=== PATIENT | male | born 1945 | race Caucasian/White ===

== ENCOUNTER → 2021-06-26 08:30 | Outpatient (CLI) | payer MEDICARE, SELFPAY ==
--- NOTE | ~2021-06-26 | MR_ITS ---
EXAMINATION: MR brain/brain stem wo con DATE: 06/26/2021 09:11 INDICATION: Cognitive decline. Altered mental status. TECHNIQUE: Magnetic resonance imaging (MRI) of the brain and brainstem was performed without intraven ous contrast. Sequences included sagittal and axial T1-weighted FSE, axial diffusion-weighted FS EPI, axial T2*-weighted GRE, axial T2-weighted FLAIR Propeller, and axial T2-weighted Propeller. Apparent diffusion coefficient (ADC) maps were created. COMPARISON: None. FINDINGS: There is a 3.9 x 2.8 cm arachnoid cyst posterior to left cerebellum. There are scattered ar eas of nonspecific increased T2-weighted signal intensity in the cerebral white matter, which is with in normal limits for the patient's age. There is no intracranial hemorrhage, acute infarction, or abn ormal intracranial mass lesion. The ventricles are normal in size. There is an old blowout fracture o f medial wall of left orbit. There is mild mucosal thickening in the ethmoid sinuses. The mastoid air cells are normal. IMPRESSION: 1. No etiology for the patient's symptoms. Reviewed, dictated and finalized at location A.
== END ==
PROVIDERS: PCP Family Medicine; Visit Provider Psychiatry & Neurology Neurology
DX: R41.89 Other symptoms and signs involving cognitive functions and awareness (principal)
CPT/HCPCS: 70551

== ENCOUNTER 2023-06-01 12:25 | Observation (INO) | payer MEDICARE, SELFPAY ==
--- NOTE | ~2023-06-01 | CT_ITS ---
EXAMINATION: CT brain wo con DATE: 06/01/2023 12:38 INDICATION: Right-sided facial droop. TECHNIQUE: Computed tomography (CT) of the head was performed without intravenous contrast. Sagittal and coronal reconstructions were performed. The mA was adjusted according to patient size. Iterative reconstruction technique was employed. The dose-length product was 605.33 mGy-cm. COMPARISON: Brain MR dated 06/26/2021 FINDINGS: No acute intracranial hemorrhage or acute infarction. Stable appearance of a 3.7 x 2.8 cm arachnoid c yst posterior to the cephalad left cerebellum. No other abnormal extra axial fluid collections. There is mild scattered white matter hypoattenuation consistent with chronic small vessel ischemic disease . Symmetric prominence of the sulci consistent with mild age-appropriate diffuse cerebral volume loss . Ventricles are normal and symmetric. No mass/mass effect. Changes of bilateral intraocular lens rep lacement. Chronic blowout fracture along the medial wall of the left orbit. The paranasal sinuses and mastoid air cells are normal. IMPRESSION: 1. No acute intracranial process. 2. Age-related changes including mild diffuse volume loss and mild scattered white matter hypoattenua tion consistent with chronic small vessel ischemic disease. Reviewed, dictated and finalized at location A. IMPRESSION: 1. No acute intracranial process. 2. Age-related changes including mild diffuse volume loss and mild scattered wh ite matter hypoattenuation consistent with chronic small vessel ischemic diseas e.
--- NOTE | ~2023-06-01 | US_ITS ---
EXAMINATION: US carotid duplex BI DATE: 06/02/2023 09:50 INDICATION: Neurologic symptoms. Carotid atherosclerosis. TECHNIQUE: Grayscale, color Doppler, and pulsed Doppler images of the cervical carotid arteries were obtained. The degree of vessel stenosis is placed in one of the following categories: normal, <50%, 5 0-69%, >=70% but less than near-occlusion, near-occlusion, or total occlusion. Note that percent sten osis relative to normal distal artery lumen diameter is indirectly measured from velocity measurement s as described by Sj, et al. Radiology 2003; 229:340-346. COMPARISON: None. FINDINGS: RIGHT: The right common carotid artery (CCA) peak systolic velocity (PSV) is 66 cm/s. The right internal car otid artery (ICA) PSV is 54 cm/s. The right ICA end-diastolic velocity (EDV) is 13 cm/s. The right IC A/CCA PSV ratio is 0.8. Grayscale and color Doppler images yield an estimate of <50% diameter reducti on from plaque in the ICA. The external carotid artery (ECA) PSV is 94 cm/s. There is antegrade flow in the right vertebral artery. LEFT: The left CCA PSV is 85 cm/s. The left ICA PSV is 55 cm/s. The left ICA EDV is 13 cm/s. The left ICA/C CA PSV ratio is 0.7. Grayscale and color Doppler images demonstrate no evident stenosis or plaque in the ICA. The ECA PSV is 73 cm/s. There is antegrade flow in the left vertebral artery. IMPRESSION: 1. <50% stenosis from minimal plaque in the right internal carotid artery. 2. No evident plaque or stenosis in the left internal carotid artery. Reviewed, dictated and finalized at location A.
--- NOTE | ~2023-06-01 | CT_ITS ---
CT Scan of the Chest without Contrast: Clinical Indication: Pulmonary nodules Technique: Contiguous sections were acquired throughout the chest without intravenous contrast. Dose reduction technique was used on this scan by utilizing automated exposure control and iterative recon struction technique. The dose-length product (DLP) was 425.41 mGy-cm. Findings: There is no evidence of any significant mediastinal, hilar or axillary lymphadenopathy. Coronary phil ry calcifications are present. There is no evidence of pleural or pericardial effusion. There are numerous tiny centrilobular nodules in the upper lobes. Several calcified granulomas are al so noted in the lungs. Left kidney not visualized at the left renal fossa. Impression: Numerous tiny centrilobular nodules, predominantly in the upper lobes. This is a nonspecific finding, but likely considerations would include bronchiolitis/small airways infection. Other considerations could include chronic interstitial disease, hypersensitivity pneumonitis. Clinical correlation is req uired. Left kidney not visualized at the left renal fossa. Correlate for prior resection versus low-lying or ectopic kidney. Reviewed, dictated and finalized at [facility]. Impression: Numerous tiny centrilobular nodules, predominantly in the upper lobes. This is a nonspecific finding, but likely considerations would include bronchiolitis/sm all airways infection. Other considerations could include chronic interstitial disease, hypersensitivity pneumonitis. Clinical correlation is required. Left kidney not visualized at the left renal fossa. Correlate for prior resecti on versus low-lying or ectopic kidney.
--- NOTE | ~2023-06-01 | CT_ITS ---
EXAMINATION: CTA BRAIN/CAROTID DATE: 06/01/2023 13:45 INDICATION: Intermittent right facial droop TECHNIQUE: Computed tomographic angiography (CTA) of the head and neck was performed with 100 mL Omni paque-350 intravenous contrast. Multiplanar reconstructions and maximum intensity projection 3D-recon structions of the carotid arteries and of the intracranial arteries were created by the technologist on a separate workstation. Automated exposure control and iterative reconstruction technique were emp loyed.The dose-length product was 1272.19 mGy-cm. COMPARISON: None. FINDINGS: Carotid arteries: Small amount of scattered atherosclerotic plaque along the normal caliber thoracic aorta with no diss ection. There is small amount of atherosclerotic plaque with 0% stenosis of the right carotid bulb re lative to normal distal artery lumen diameter (NASCET criteria). There is no evident atherosclerotic plaque with 0% stenosis of the left carotid bulb relative to normal distal artery lumen diameter. Mil d bilateral hilar lymphadenopathy. Calcified right middle lobe nodule and calcified right hilar lymph nodes consistent with old granulomatous disease. There are numerous <5 mm, the majority 2 mm or smal ler scattered throughout the visualized mid and upper lungs with upper lung predominance. These nodul es have a random distribution with multiple positioned along the fissures and pleura but many also ap pearing centrilobular. Mild cervical spondylosis with bridging osteophytes at multiple levels consist ent with diffuse idiopathic skeletal hyperostosis (DISH). Intracranial arteries Scattered atherosclerotic plaque along the bilateral carotid siphons without hemodynamically signific ant stenosis. Left vertebral artery is mildly dominant. Additional atherosclerotic plaque along the b ilateral intracranial vertebral arteries, right greater than left with no significant stenosis on the left but with up to 60% stenosis on the right. No hemodynamically significant stenosis in the basila r artery. There are no aneurysms identified. Both A1 and P1 segments are patent. There is also a pat ent anterior communicating artery. Cerebral arterial arborization appears symmetric. No abnormally en hancing brain lesions identified. Left posterior fossa arachnoid cyst. IMPRESSION: 1. Small amount of atherosclerotic plaque with 0% stenosis of the right carotid bulb relative to norm al distal artery lumen diameter (NASCET criteria). 2. No evident atherosclerotic plaque with 0% stenosis of the left carotid bulb relative to normal dis candi artery lumen diameter. 3. Atherosclerotic disease with 60% stenosis along the intracranial right vertebral artery. 4. Numerous small pulmonary nodules and micronodules scattered throughout the visualized portions of both lungs with random distribution and upper lung predominance. Likely associated bilateral hilar ly mphadenopathy. Differential would include metastatic disease, atypical miliary infection including TB or fungal infections, sarcoidosis, silicosis or less likely hypersensitivity pneumonitis bursitis or respiratory bronchiolitis interstitial lung disease given the apparent presence of pleural-based nod ules. Reviewed, dictated and finalized at location A. IMPRESSION: 1. Small amount of atherosclerotic plaque with 0% stenosis of the right carotid bulb relative to normal distal artery lumen diameter (NASCET criteria). 2. No evident atherosclerotic plaque with 0% stenosis of the left carotid bulb relative to normal distal artery lumen diameter. 3. Atherosclerotic disease with 60% stenosis along the intracranial right verte bral artery. 4. Numerous small pulmonary nodules and micronodules scattered throughout the v isualized portions of both lungs with random distribution and upper
--- NOTE | ~2023-06-01 | MR_ITS ---
MRI of the brain Clinical History: TIA Technique: Axial and sagittal T1-weighted images were acquired. These were followed by axial T2-weigh nancy, diffusion weighted, gradient, and FLAIR images. Following intravenous administration of 19 cc Mu ltiHance gadolinium, T1-weighted fat-sat imaging was performed in the axial and coronal planes. COMPARISON: 06/26/2021 Findings: No acute infarct or intracranial hemorrhage identified. Stable arachnoid cyst in the left p osterior fossa. Mild chronic white matter changes are present in the periventricular white matter, si milar to prior exam. Ventricles and subarachnoid spaces otherwise are mildly dilated. Orbits are unremarkable. Paranasal s inuses and mastoid air cells are clear. Major intracranial flow voids are intact. Sagittal midline structures are intact. No abnormal postcontrast enhancement identified. IMPRESSION: No acute abnormality seen. Stable left posterior fossa arachnoid cyst. Mild chronic white matter changes and mild to moderate generalized atrophy. Reviewed, dictated and finalized at location .
[2023-06-01 12:27] VITALS: BP 137/68; PULSE 89; RESP 16; TEMP 36.4; O2SAT 98
--- NOTE | 2023-06-01 12:34 | ECG_ITS ---
Measurements Intervals [place] Rate: 77 P: 42 CA: 180 QRS: -31 QRSD: 107 T: 33 QT: 390 QTc: 442 Interpretive Statements SINUS RHYTHM LEFT AXIS DEVIATION DELAYED PRECORDIAL R/S TRANSITION BORDERLINE ECG NO PREVIOUS ECG AVAILABLE FOR COMPARISON Electronically Signed On 06-01-2023 12:57:50 CDT by Robert Dillon D.O.
--- NOTE | 2023-06-01 12:35 | ED.NEUROSD ---
HPI - Neuro Symptoms/Deficit General Chief Complaint: Neuro Symptoms/Deficit Stated Complaint: FACIAL DROOP Time Seen by Provider: 06/01/23 12:34 History of Present Illness HPI Narrative: Patient is an 78-year-old male presenting as a stroke alert. Patient states that his thought that the right side of his mouth looked a little bit droopy so she thought he was having a heart attack and made him come in for evaluation. He denies any complaints at this time other than not being able to play golf. No numbness or weakness. No slurred speech. No vision changes. No complaints. Related Data Home Medications Medication Instructions Recorded Confirmed aspirin 81 mg tablet,delayed 81 mg PO DAILY 12/18/19 06/01/23 release (Aspir-Low) multivitamin (One Daily Essential 1 tablet PO DAILY 12/18/19 06/01/23 tablet) omega-3 fatty acids 1,000 mg 1,000 mg PO DAILY 12/18/19 06/01/23 capsule (Fish Oil Concentrate) cholecalciferol (vitamin D3) 50 50 mcg PO DAILY 12/02/21 06/01/23 mcg (2,000 unit) capsule insulin NPH-regular 70-30 U-100 20 unit subcut BID 06/06/22 06/01/23 insulin 100 unit/mL subcutaneous pen (Novolin 70-30 FlexPen U-100 Insulin) gemfibrozil 600 mg tablet 600 mg PO BID 06/01/23 06/01/23 Allergies Allergy/AdvReac Type Severity Reaction Status Date / Time No Known Allergies Allergy Verified 06/06/22 10:01 Review of Systems Review of Systems: All systems reviewed & are unremarkable except as noted in HPI and below PMFSH Past Medical History Medical History Anxiety Depression Dyslipidemia Essential (primary) hypertension History of colon polyps IDDM (insulin dependent diabetes mellitus) Positive serology for syphilis Pulmonary nodule Vitamin D deficiency Surgical History Surgical History History of hernia surgery bilateral inguinal hernia repair - 2014 Family History Family History Mother Diabetes mellitus CHF (congestive heart failure) Dementia Father Dementia Social History Social History Social History: The patient is retired from the [employer]. 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 He is and lives with his . He has 1 child. He is a former smoker. He denies any alcohol marijuana or illicit drugs. Code status full code Smoking status: Never smoker Tobacco type: cigarettes Smoking end date: 11/20/1965 Alcohol intake: former Drinks per week: 0 Alcohol use details: stopped in 1972 Substance use: never Substance use type: does not use Lack of Transportation: No Lack of Food: Never True Current Housing: I Have Housing Concerned About Future Housing: No Difficulty Paying Gas/Electric Bills: No Difficulty Paying for Meds: No Currently Unemployed: No Education: High School Diploma/GED Difficulty w/ Childcare or Family Care: No Living arrangements: with family Additional living arrangements comments: Occupation/Education: retired Gender identity (if verbalized by the patient): Male Sexual Orientation (if Verbalized by the Patient): Straight or Heterosexual Spiritual care concerns: No Exam Narrative: GENERAL: Well-appearing, well-nourished, and in no acute distress. HEAD: Normocephalic, atraumatic. EYES: PERRLA and EOMI. ENT: Nares clear, no rhinorrhea or epistaxis. Mucous membranes moist. NECK: Supple. CHEST: No respiratory distress. HEART: Regular rate and rhythm ABDOMEN: Soft, nontender, nondistended EXTREMITIES: Normal range of motion. No edema. SKIN: Warm, dry, no rash. NEURO: No focal deficits. Alert and oriented x3. 5 out of 5 strength in all extremities, I do not appreciate a facial droop, normal speech, no pronator drift
[2023-06-01 12:47] LABS: Glucose Point of Care 222 mg/dl (65-105)
[2023-06-01 12:51] LABS: Basophils Absolute Auto 0.1 K/mm3 (0.0-0.1); Basophils Percent Auto 0.9 % (0.2-1.2); Eosinophils Absolute Auto 0.1 K/mm3 (0-0.3); Eosinophils Percent Auto 1.1 % (0-4.4); Hematocrit 42.5 % (42.0-52.0); Hemoglobin 14.9 g/dL (14.0-18.0); Immature Granulocyte Absolute 0.01 K/mm3 (0.00-0.031); Immature Granulocyte Percent A 0.1 % (0-0.5); Lymphocytes Absolute Auto 1.22 K/mm3 (0.9-3.2); Lymphocytes Percent Auto 17.4 % (18.3-44.2); Mean Corpuscular HGB Conc 35.1 g/dl (32-36); Mean Corpuscular Hemoglobin 30.8 pg (26-34); Mean Corpuscular Volume 87.8 fl (80-100); Mean Platelet Volume 11.3 fl (7.4-10.4); Monocytes Absolute Auto 0.5 K/mm3 (0.1-0.6); Monocytes Percent Auto 7.7 % (2.6-8.5); Neutrophils Absolute Auto 5.1 K/mm3 (1.3-6.7); Neutrophils Percent Auto 72.8 % (45.5-73.1); Platelet Count Result 199 k/mm3 (150-375); Red Blood Count 4.84 M/mm3 (4.6-6.20); Red Cell Distribution Width 12.9 % (11.5-14.5)
[2023-06-01 13:01] LABS: Alanine Aminotransferase 21 U/L (6-50); Albumin Level 4.2 g/dL (3.5-5.1); Alkaline Phosphatase 69 U/L (38-126); Anion Gap 7 mmol/L (8-16); Aspartate Amino Transferase 30 U/L (17-59); Blood Urea Nitrogen 18 mg/dL (9-20); Calcium 9.3 mg/dL (8.4-10.2); Carbon Dioxide 28 mmol/L (22-30); Chloride 103 mmol/L (98-107); Estimated CRCL calculation 57 ml/min; Estimated Glomerular Filt Rate > 60; Glucose 198 mg/dL (65-110); INR 1.1; Potassium 3.5 mmol/L (3.4-5.0); Prothrombin Time 15.2 Seconds (11.1-14.7); Sodium 138 mmol/L (137-145)
[2023-06-01 13:02] LABS: Partial Thromboplastin Time 28.5 SECONDS (22.3-36.8)
[2023-06-01 13:13] LABS: Troponin I < 0.012 ng/mL (0.000-0.034)
[2023-06-01 14:00] VITALS: BP 149/73; PULSE 79; RESP 20; O2SAT 93
[2023-06-01 15:40] LABS: Appearance Urine Clear (Clear); Bacteria Urine None Seen /hpf; Bilirubin Urine Negative (Negative); Blood Urine Negative (Negative); Color Urine Yellow (Yellow); Glucose Urine UA Negative (Negative); Ketones Urine Negative (Negative); Leukocyte Esterase Ur Negative LEU/UL (Negative); Nitrate Urine Negative (Negative); Protein Urine Trace mg/dL (Negative); RBC Urine 0-2 /hpf (0-2); Squamous Epithelial Cell Urine None seen /hpf (Few); WBC Urine 0-5 /hpf
[2023-06-01 15:45] LABS: Add Urine Microscopic? YES; Specific Grav Ur 1.051 (1.001-1.035)
[2023-06-01 15:54] VITALS: BMI 28.0
[2023-06-01 15:57] VITALS: BP 161/68; PULSE 89; RESP 18; TEMP 36.7; O2SAT 96
[2023-06-01 16:21] VITALS: BMI 28.0
--- NOTE | 2023-06-01 16:28 | PM.IMHP ---
H&P: HPI History of Present Illness Date/Time: 06/01/23 16:28 Chief Complaint: Facial droop Narrative: This is a very active 78-year-old male patient who was brought into the emergency room presenting with a stroke alert. His stated that he had some right-sided facial drooping this morning. She thought that he was having a stroke and brought up to the hospital. The patient had no focal weakness or any visual changes. The patient had no difficulty ambulating. Head and neck CTA was read as a follows. Small amount of atherosclerotic plaque with 0% stenosis of the right carotid bulb relative to normal distal artery lumen diameter (NASCET criteria). 2. No evident atherosclerotic plaque with 0% stenosis of the left carotid bulb relative to normal distal artery lumen diameter. 3. Atherosclerotic disease with 60% stenosis along the intracranial right vertebral artery. 4. Numerous small pulmonary nodules and micronodules scattered throughout the visualized portions of both lungs with random distribution and upper lung predominance. Likely associated bilateral hilar lymphadenopathy. Differential would include metastatic disease, atypical miliary infection including TB or fungal infections, sarcoidosis, silicosis or less likely hypersensitivity pneumonitis bursitis or respiratory bronchiolitis interstitial lung disease given the apparent presence of pleural-based nodules. Head CT was read as a follows. No acute intracranial process. 2. Age-related changes including mild diffuse volume loss and mild scattered white matter hypoattenuation consistent with chronic small vessel ischemic disease. The patient is alert and active and very talkative. He is moving without difficulty. His glucose is 198 and then 415. The patient had insulin coverage. His troponin was negative. His urine was negative. The patient is being admitted to observation status on the date of service of 06/01/2023 Review of Systems Review of Systems: All systems reviewed & are unremarkable except as noted in HPI and below Constitutional: Constitutional: Reports as per HPI and Reports no additional constitutional complaints Eyes: Eyes: Reports as per HPI and Reports no additional eye complaints ENT: Reports system reviewed and no additional complaints, except as documented and Reports Normal hearing present Cardiovascular: Cardiovascular: Reports no additional cardiovascular complaints Respiratory: Respiratory: Reports no additional respiratory complaints and Reports no additional respiratory complaints Gastrointestinal: Gastrointestinal: Reports as per HPI and Reports no additional gastrointestinal complaints Musculoskeletal: Musculoskeletal: Reports no additional musculoskeletal complaints Integumentary/Breasts: Skin/Breast: Reports system reviewed and no additional complaints, except as docu and Reports as per HPI Neurologic: Reports system reviewed and no additional complaints, except as documented, Reports as per HPI and Reports Normal hearing present Psychiatric: Psychiatric: Reports no additional psychiatric complaints and Reports as per HPI Endocrine: Endocrine: Reports no additional endocrine complaints Hematologic/Lymphatic: Hematologic/Lymphatic: Reports no additional hematologic/lymphatic complaints Allergic/Immunologic: Allergic/Immunologic: Reports no additional allergic/immunologic complaints [facility] Past Medical History Medical History (Updated 06/02/23 @ 00:12 by Mell Moirllo NP) Anxiety Depression Dyslipidemia Essential (primary) hypertension History of colon polyps IDDM (insulin dependent diabetes mellitus) Positive serology for syphilis Pulmonary nodule Vitamin D deficiency Surgical History Surgical History History of hernia surgery bilateral inguinal hernia repair - 2014 Family History Family History Mother Diabetes mellitu
--- NOTE | 2023-06-01 16:32 | ADMGEN ---
This patient, Bassam Wiggins, was admitted to Medical Room 255-. Patient/family oriented to hospital policies and general routines including ID bracelet, bed and alarms, visiting hours, pain management, procedures, bathroom and other care routines, personal items, smoking policy, room service/diet, and visiting hours. Information on how to activate the Rapid Response Team has been discussed. Patient/Family are encouraged to report perceived risks to care and to ask questions if they do not understand what they are told or what they should do.
[2023-06-01 19:41] VITALS: BP 150/80; PULSE 74; RESP 18; TEMP 36.8; O2SAT 97
[2023-06-01 20:00] VITALS: PULSE 89
[2023-06-01 20:54] LABS: Glucose Point of Care 415 mg/dl (65-105)
[2023-06-01] MEDS: INSULIN ASPART (*BKC) 100 UNITS/ML 8 UNITS SUB-Q (21:34)
[2023-06-02] VITALS: PULSE 61
--- NOTE | 2023-06-02 | ECHO_ITS ---
Patient Info Name: Bassam Wiggins Age: 78 years : 1945 Gender: Male Ht: 72 in Wt: 207 lbs BSA: 2.20 m2 HR: 66 bpm BP: 148 / 60 mmHg Technical Quality: Fair Exam Date: 06/02/2023 10:56 AM Exam Location: [facility] Patient Status: Outpatient Admit Date: 06/01/2023 Staff Ordering Physician: Mell Morillo NP Tile Helper: Blessing Manzo RDCS Attending Provider: Mark Ahn MD Referring Physician: Yisel DAVID; Exam Type: CA echo doppler w bubble study Study Info Indications - NEUROLOGICAL SYMPTOMS Complete two-dimensional, color flow and Doppler transthoracic echocardiogram is performed with agitated saline. Contrast/Agitated Saline Contrast/Ag. Saline: Agitated Saline Amount: 40.00 ml Summary 1. Left ventricular chamber dimension is normal. 2. Left ventricular systolic function is normal, estimated at 60-65%. 3. The left ventricular diastolic function is grade I diastolic dysfunction. 4. E/e' 12 is mildly elevated. 5. Left atrial chamber dimension is moderately enlarged. 6. There is mild aortic valve sclerosis. 7. No pulmonary hypertension, estimated pulmonary arterial systolic pressure is 29 mmHg. Left Ventricle E/e' 12 is mildly elevated. Left ventricular chamber dimension is normal. Left ventricular systolic function is normal, estimated at 60-65%. The left ventricular diastolic function is grade I diastolic dysfunction. Right Ventricle Right ventricular chamber dimension is normal. Right ventricular systolic function is normal. Left Atria Left atrial chamber dimension is moderately enlarged. Right Atria Right atrial chamber dimension is normal. Atrial Septum Agitated saline injection with and without valsalva maneuver opacified right side cardiac chambers without shunt to left side cardiac chambers. Intact interatrial septum visualized by 2D and agitated saline imaging. Aortic Valve The aortic valve is trileaflet. There is mild aortic valve sclerosis. There is no aortic valve stenosis. There is no aortic valve regurgitation. Pulmonic Valve There is no pulmonic regurgitation. Mitral Valve There is no mitral valve stenosis. There is no mitral valve regurgitation. Tricuspid Valve There is no tricuspid valve regurgitation. No pulmonary hypertension, estimated pulmonary arterial systolic pressure is 29 mmHg. Pericardium/Pleural There is no pericardial effusion. Inferior Vena Cava Normal inferior vena cava with >50% collapse upon inspiration consistent with normal right atrial pressure, 5 mmHg. Aorta The aortic root size at the sinus of Valsalva is normal. Left Ventricular Outflow Tract Name Value Normal LVOT 2D LVOT Diameter 2.0 cm LVOT Doppler LVOT Peak Gradient 5 mmHg LVOT Mean Gradient 3 mmHg LVOT VTI 28 cm LVOT VTI/AV VTI Ratio 1.0 LVOT Stroke Volume 90 ml LVOT CO 5.5 l/min LVOT CI 2.5 l/min/m2 Pulmonic Valve
[2023-06-02 05:32] LABS: Basophils Percent Auto 0.7 % (0.2-1.2); Eosinophils Absolute Auto 0.2 K/mm3 (0-0.3); Eosinophils Percent Auto 4.2 % (0-4.4); Hematocrit 36.9 % (42.0-52.0); Hemoglobin 12.7 g/dL (14.0-18.0); Lymphocytes Absolute Auto 1.58 K/mm3 (0.9-3.2); Lymphocytes Percent Auto 39.2 % (18.3-44.2); Mean Corpuscular HGB Conc 34.4 g/dl (32-36); Mean Corpuscular Hemoglobin 30.2 pg (26-34); Mean Corpuscular Volume 87.6 fl (80-100); Mean Platelet Volume 11.1 fl (7.4-10.4); Monocytes Absolute Auto 0.4 K/mm3 (0.1-0.6); Monocytes Percent Auto 9.2 % (2.6-8.5); Neutrophils Absolute Auto 1.9 K/mm3 (1.3-6.7); Neutrophils Percent Auto 46.7 % (45.5-73.1); Platelet Count Result 153 k/mm3 (150-375); Red Blood Count 4.21 M/mm3 (4.6-6.20); Red Cell Distribution Width 12.6 % (11.5-14.5)
[2023-06-02 06:00] VITALS: BP 148/60; PULSE 60; RESP 18; TEMP 36.4; O2SAT 94
[2023-06-02 06:00] LABS: Alanine Aminotransferase 18 U/L (6-50); Albumin Level 3.9 g/dL (3.5-5.1); Alkaline Phosphatase 65 U/L (38-126); Anion Gap 5 mmol/L (8-16); Aspartate Amino Transferase 28 U/L (17-59); Bilirubin,Total 0.6 mg/dL (0.2-1.3); Blood Urea Nitrogen 19 mg/dL (9-20); Calcium 8.8 mg/dL (8.4-10.2); Carbon Dioxide 29 mmol/L (22-30); Chloride 105 mmol/L (98-107); Estimated CRCL calculation 70 ml/min; Estimated Glomerular Filt Rate > 60; Glucose 227 mg/dL (65-110); Magnesium 1.7 mg/dL (1.6-2.3); Potassium 3.6 mmol/L (3.4-5.0); Sodium 139 mmol/L (137-145)
[2023-06-02 06:16] LABS: Lactic Acid Reflex 0.9 mmol/L (0.7-2.0)
[2023-06-02 06:31] LABS: Hemoglobin A1C 8.4 % (<5.7)
[2023-06-02 08:00] VITALS: PULSE 49; PULSE 60; RESP 18
--- NOTE | 2023-06-02 08:56 | WPDNEURCNPN ---
Assessment and Plan Assessment and plan (1) Facial droop: Code(s): R29.810 - Facial weakness Status: Acute (2) IDDM (insulin dependent diabetes mellitus): Code(s): E11.9 - Type 2 diabetes mellitus without complications; Z79.4 - alf (current) use of insulin Status: Acute (3) Dyslipidemia: Code(s): E78.5 - Hyperlipidemia, unspecified Status: Acute (4) Essential (primary) hypertension: Code(s): I10 - Essential (primary) hypertension Status: Acute Plan Bassam Wiggins is a 78 year old male with a history of HTN, HLD, DM, anxiety, depression presenting due to transient episode of right facial droop, concerning for possible TIA. CTA brain showed R vertebral stenosis. MRI negative for acute stroke. - Surface echocardiogram with bubble study pending - Will need to optimize DM and HLD management, goal LDL <70 - Once work-up is completed, should be okay to dc Consult date: 06/02/23 Reason for consult: TIA HPI: Bassam Wiggins is a 78 year old male with a history of HTN, HLD, DM, anxiety, depression presenting due to concerns for TIA. On day of presentation, noted that patient had right facial droop. He did not have any other focal weakness or numbness or speech issues. She was concerned that he was having a heart attack so brought him to [place] ED. On arrival to [place] he no longer had any facial droop and his NIH was 0. EKG showed sinus rhythm. Blood pressure was in the 130s systolic. CT head showed no acute changes. CTA brain/carotid showed small amount of atheroslerotic plaque in the R carotid bulb, and atherosclerotic disease with 60% stenosis along the intracranial R vertebral artery. He already takes daily aspirin and is on gemfibrozil. His LDL from this admission is 116 and A1c is 8.4. MRI brain negative for acute stroke. Review of Systems Constitutional: Constitutional: Denies chills, Denies fever(s) and Denies weight loss Eyes: Eyes: Denies diplopia and Denies loss of vision ENT: Denies dizziness, Denies hearing loss and Denies tinnitus Cardiovascular: Cardiovascular: Denies chest pain, Denies syncope and Denies dyspnea Respiratory: Respiratory: Denies cough, Denies dyspnea and Denies wheezing Gastrointestinal: Gastrointestinal: Denies abdominal pain, Denies change in bowel habits and Denies vomiting Genitourinary: Genitourinary: Denies urinary incontinence Musculoskeletal: Musculoskeletal: Denies arthralgias and Denies joint swelling Integumentary/Breasts: Skin/Breast: Denies new lesions and Denies rash Neurologic: Reports as per HPI, Denies dizziness, Denies syncope and Denies loss of vision Psychiatric: Psychiatric: Denies anxiety and Denies depression Endocrine: Endocrine: Denies cold intolerance and Denies heat intolerance Hematologic/Lymphatic: Hematologic/Lymphatic: Denies easy bleeding and Denies easy bruising Allergic/Immunologic: Allergic/Immunologic: Denies no additional allergic/immunologic complaints and Denies wheezing PMFSH Past Medical History Medical History Anxiety Depression Dyslipidemia Essential (primary) hypertension History of colon polyps IDDM (insulin dependent diabetes mellitus) Positive serology for syphilis Pulmonary nodule Vitamin D deficiency Surgical History Surgical History History of hernia surgery bilateral inguinal hernia repair - 2014 Family History Family History Mother Diabetes mellitus CHF (congestive heart failure) Dementia Father Dementia Social History Social History Social History: The patient is retired from the [employer]. 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 He is and lives with his . He has 1 child. He is a fo
[2023-06-02] MEDS: SERTRALINE HCL 25 MG TABLET 75 MG PO (09:54)
[2023-06-02] MEDS: CHOLECALCIFEROL 1,000 UNITS TABLET 2000 UNITS PO (09:54)
[2023-06-02] MEDS: lisinopriL 20 MG TABLET 40 MG PO (09:54)
[2023-06-02] MEDS: amLODIPine BESYLATE 5 MG TABLET 10 MG PO (09:55)
[2023-06-02] MEDS: gemfibroziL 600 MG TABLET PO ×2 (09:55→17:48)
[2023-06-02] MEDS: MULTIVITAMINS THERAPEUTIC TAB (*BKC) 1 TABLET PO (09:55)
[2023-06-02] MEDS: OMEGA 3 POLYUNSAT FATTY ACIDS 1 GM CAP PO (09:55)
[2023-06-02] MEDS: ASPIRIN 81 MG ENTERIC TABLET PO (09:55)
[2023-06-02 10:09] LABS: Glucose Point of Care 205 mg/dl (65-105)
[2023-06-02] MEDS: INSULIN ASPART (*BKC) 100 UNITS/ML SUB-Q ×3 (10:14→17:46)
[2023-06-02 12:00] VITALS: PULSE 66
--- NOTE | 2023-06-02 12:02 | PM.DS ---
DS: Admitting Diagnosis Discharge Date June 02, 2023 Admitting Diagnosis TIA DS: Discharge Diagnosis Discharge Diagnosis (1) Facial droop: Code(s): R29.810 - Facial weakness Status: Acute Assessment and Plan: Symptoms have resolved. Continue with aspirin. Neurology has been consulted. Continue with TIA workup. MRI of the brain, echo with bubble study, and carotid Dopplers. The patient is back to his normal state of health and would like to be discharged tomorrow. The patient stated that he is preparing for golf tournament and he job a mile and half every day. The patient is moving all extremities without difficulty. (2) Pulmonary nodule: Code(s): R91.1 - Solitary pulmonary nodule Status: Acute Assessment and Plan: Diagnostic CT of the chest to rule out infectious process versus malignancy. (3) Anxiety: Code(s): F41.9 - Anxiety disorder, unspecified Status: Acute Assessment and Plan: Continue with patient's sertraline (4) Dyslipidemia: Code(s): E78.5 - Hyperlipidemia, unspecified Status: Acute Assessment and Plan: Continue with gemfibrozil and [place] 3 (5) IDDM (insulin dependent diabetes mellitus): Code(s): E11.9 - Type 2 diabetes mellitus without complications; Z79.4 - ocean transportation intermediary (current) use of insulin Status: Acute Assessment and Plan: I am holding his 70 30 at this time. Which is do Accu-Cheks AC and HS with sliding scale insulin. Check A1c. Holding metformin due to the dye. (6) Depression: Qualifiers: Depression Type: unspecified Qualified Code(s): F32.9 - Major depressive disorder, single episode, unspecified Code(s): F32.9 - Major depressive disorder, single episode, unspecified Status: Acute Assessment and Plan: Continue sertraline (7) Essential (primary) hypertension: Code(s): I10 - Essential (primary) hypertension Status: Acute Assessment and Plan: Continue lisinopril and Norvasc DS: Summary Hospital Course Hospital Course: Patient was admitted for TIA, workup was negative. He can be discharged. Time Spent with Patient Time attestation: Total time spent providing and/or coordinating discharge services: Exam Const: General: cooperative, healthy appearing, comfortable, no acute distress, well developed, awake, Physically active, average body habitus and well nourished Nutritional Appearance: average body habitus and well nourished Orientation/consciousness: oriented to person, oriented to place, oriented to time and patient oriented x3 Limitations: no limitations HENMT: Head: normal to inspection, No palpable skull fracture present, normocephalic and atraumatic Ears: hearing grossly normal bilaterally and external ears normal Face/Nose/Sinus: Normal external nose present and Normal nares present Eyes: General: appearance normal, both eyes and all related structures Alignment and Position: alignment normal Periorbital: periorbital findings normal Eyelids: eyelids normal Sclera: sclerae normal Pupils: Equal, round and reactive pupils present EOM: EOMs intact bilaterally Neck: Neck: normal visual inspection, full ROM, no lymphadenopathy, trachea midline and supple Chest: Chest palpation & inspection: normal inspection of the chest Resp: Effort & Inspection: normal respiratory effort Auscultation: clear to auscultation bilaterally Cardio: Palpation: normal PMI Rate: regular rate Rhythm: regular rhythm Heart sounds: S1 normal heart sound present and S2 normal heart sound present Peripheral pulses: Peripheral pulses 2+ throughout GI: Inspection: normal to inspection Auscultation: normal bowel sounds Rectal Exam: deferred Back/Spine/Pelvis: Cervical Spine: cervical ROM normal Skin: General skin exam: normal color Lesions: no lesions Rashes: no rashes Trauma: no lacerations or abrasions Wounds: no wounds Hair: normal Nails: normal Neuro:
[2023-06-02 12:18] LABS: Glucose Point of Care 318 mg/dl (65-105)
--- NOTE | 2023-06-02 13:21 | PCCCNOTE ---
On 06/02/23, the student, [Ellen Colin], provided care and completed [facility] documentation on this patient. I have reviewed the student's documentation and agree with the findings.
[2023-06-02 14:59] VITALS: BP 125/87; PULSE 59; RESP 18; TEMP 36.6; O2SAT 97
[2023-06-02 16:00] VITALS: PULSE 59
[2023-06-02 17:32] LABS: Glucose Point of Care 283 mg/dl (65-105)
== END 2023-06-02 18:00 | disposition home or self-care (01) ==
LOC: ANHED 13:33 → ANH2MED 15:35
PROVIDERS: Nurse Practitioner; Admitting Provider Chiropractor; Emergency Provider Emergency Medicine; PCP Family Medicine; Visit Provider Chiropractor
DX: R29.810 Facial weakness (principal); E11.9 Type 2 diabetes mellitus without complications; E78.5 Hyperlipidemia, unspecified; I11.9 Hypertensive heart disease without heart failure; F41.9 Anxiety disorder, unspecified; F32.A Depression, unspecified; I65.01 Occlusion and stenosis of right vertebral artery; A53.0 Latent syphilis, unspecified as early or late; G93.0 Cerebral cysts; R91.8 Other nonspecific abnormal finding of lung field; R90.82 White matter disease, unspecified; I35.8 Other nonrheumatic aortic valve disorders; E55.9 Vitamin D deficiency, unspecified; Z87.891 Personal history of nicotine dependence; Z79.82 Long term (current) use of aspirin; Z79.4 Long term (current) use of insulin; Z79.84 Long term (current) use of oral hypoglycemic drugs; Z79.899 Other long term (current) drug therapy
CPT/HCPCS: 36415; 70450; 70496; 70498; 70553; 71250; 80053; 81001; 82948; 83036; 83605; 83735; 84443; 84484; 85025; 85610; 85730; 93005; 93306; 93880; 96375; 99285; A9270; A9577; G0378; J1815; Q9967

== ENCOUNTER 2023-06-12 10:45 | Outpatient (CLI) | payer MEDICARE, SELFPAY ==
[2023-06-12 19:49] LABS: Basophils Absolute Auto 0.1 K/mm3 (0.0-0.1); Basophils Percent Auto 1.3 % (0.2-1.2); Eosinophils Absolute Auto 0.2 K/mm3 (0-0.3); Eosinophils Percent Auto 3.6 % (0-4.4); Hematocrit 42.6 % (42.0-52.0); Hemoglobin 14.6 g/dL (14.0-18.0); Immature Granulocyte Absolute 0.01 K/mm3 (0.00-0.031); Immature Granulocyte Percent A 0.2 % (0-0.5); Lymphocytes Absolute Auto 1.67 K/mm3 (0.9-3.2); Mean Corpuscular HGB Conc 34.3 g/dl (32-36); Mean Corpuscular Hemoglobin 30.9 pg (26-34); Mean Corpuscular Volume 90.3 fl (80-100); Mean Platelet Volume 12.3 fl (7.4-10.4); Monocytes Absolute Auto 0.5 K/mm3 (0.1-0.6); Monocytes Percent Auto 9.7 % (2.6-8.5); Neutrophils Absolute Auto 3.1 K/mm3 (1.3-6.7); Neutrophils Percent Auto 55.2 % (45.5-73.1); Platelet Count Result 191 k/mm3 (150-375); Red Blood Count 4.72 M/mm3 (4.6-6.20); Red Cell Distribution Width 13.1 % (11.5-14.5); White Blood Count 5.6 K/mm3 (4.5-10.0)
[2023-06-12 20:19] LABS: Cholesterol 161 mg/dL (0-200); HDL Direct 43 mg/dL; Triglycerides 71 mg/dL (<150)
[2023-06-12 20:29] LABS: LDL Cholesterol Direct 89 mg/dL
[2023-06-12 20:48] LABS: Prostate Specific Antigen 2.7 ng/mL (< OR = 4.0)
== END 2023-06-12 10:46 | disposition home or self-care (01) ==
LOC: ANHGOSHLAB 10:46
PROVIDERS: PCP Family Medicine; Visit Provider Family Medicine
DX: E53.8 Deficiency of other specified B group vitamins (principal); E55.9 Vitamin D deficiency, unspecified; E78.5 Hyperlipidemia, unspecified; Z12.5 Encounter for screening for malignant neoplasm of prostate; Z00.00 Encounter for general adult medical examination without abnormal findings
CPT/HCPCS: 36415; 80061; 82306; 82607; 84153; 85025; G0103

== ENCOUNTER 2023-12-18 09:51 | Outpatient (CLI) | payer MEDICARE, SELFPAY ==
[2023-12-18 19:12] LABS: Alanine Aminotransferase 16 U/L (6-50); Albumin Level 4.2 g/dL (3.5-5.1); Alkaline Phosphatase 69 U/L (38-126); Anion Gap 8 mmol/L (8-16); Aspartate Amino Transferase 34 U/L (17-59); Blood Urea Nitrogen 19 mg/dL (9-20); Calcium 9.6 mg/dL (8.4-10.2); Carbon Dioxide 31 mmol/L (22-30); Chloride 104 mmol/L (98-107); Estimated Glomerular Filt Rate > 60; Glucose 152 mg/dL (65-110); Sodium 143 mmol/L (137-145)
== END 2023-12-18 09:52 | disposition home or self-care (01) ==
PROVIDERS: PCP Family Medicine; Visit Provider Family Medicine
DX: E78.5 Hyperlipidemia, unspecified (principal); E11.9 Type 2 diabetes mellitus without complications; I10 Essential (primary) hypertension; Z79.4 Long term (current) use of insulin
CPT/HCPCS: 36415; 80053

== ENCOUNTER 2024-02-28 09:54 | Outpatient (CLI) | payer MEDICARE, SELFPAY ==
--- NOTE | ~2024-02-28 | XR_ITS ---
EXAMINATION: XR hip RT min 2V DATE: 02/28/2024 10:12 INDICATION: Right hip pain. TECHNIQUE: 2 views of right hip were obtained. COMPARISON: None. FINDINGS: Bone alignment is normal. No fracture. There is mild right hip osteoarthritis. IMPRESSION: 1. Mild right hip osteoarthritis. Reviewed, dictated and finalized at location A.
== END 2024-02-28 09:55 ==
PROVIDERS: PCP Family Medicine; Visit Provider Nurse Practitioner Family
DX: M16.11 Unilateral primary osteoarthritis, right hip (principal); W19.XXXA Unspecified fall, initial encounter
CPT/HCPCS: 73502

== ENCOUNTER 2024-07-23 11:04 | Outpatient (CLI) | payer MEDICARE, SELFPAY ==
[2024-07-23 14:56] LABS: Alanine Aminotransferase 21 U/L (6-50); Albumin Level 4.4 g/dL (3.5-5.1); Alkaline Phosphatase 64 U/L (38-126); Anion Gap 11 mmol/L (4-12); Aspartate Amino Transferase 44 U/L (17-59); Bilirubin,Total 0.7 mg/dL (0.2-1.3); Blood Urea Nitrogen 15 mg/dL (9-20); Calcium 9.4 mg/dL (8.4-10.2); Carbon Dioxide 31 mmol/L (22-30); Chloride 98 mmol/L (98-107); Cholesterol 131 mg/dL (0-200); Estimated Glomerular Filt Rate > 60; Glucose 222 mg/dL (65-110); HDL Direct 41 mg/dL; Potassium 4.1 mmol/L (3.4-5.0); Sodium 140 mmol/L (137-145); Triglycerides 110 mg/dL (<150)
[2024-07-23 15:07] LABS: LDL Cholesterol Direct 66 mg/dL
[2024-07-23 15:18] LABS: Hemoglobin A1C 8.5 % (<5.7)
[2024-07-23 15:20] LABS: Microalbumin Urine Random 116.9 mg/L (0-16.7)
[2024-07-23 15:26] LABS: Prostate Specific Antigen 2.9 ng/mL (< OR = 4.0)
[2024-07-23 15:27] LABS: Vitamin D 25 Hydroxy 81.1 ng/mL
[2024-07-23 15:57] LABS: Basophils Absolute Auto 0.1 K/mm3 (0.0-0.1); Basophils Percent Auto 1.2 % (0.2-1.2); Eosinophils Absolute Auto 0.2 K/mm3 (0-0.3); Eosinophils Percent Auto 2.9 % (0-4.4); Hematocrit 43.6 % (42.0-52.0); Hemoglobin 14.7 g/dL (14.0-18.0); Immature Granulocyte Absolute 0.02 K/mm3 (0.00-0.031); Immature Granulocyte Percent A 0.3 % (0-0.5); Lymphocytes Absolute Auto 1.69 K/mm3 (0.9-3.2); Lymphocytes Percent Auto 24.6 % (18.3-44.2); Mean Corpuscular HGB Conc 33.7 g/dl (32-36); Mean Corpuscular Hemoglobin 30.1 pg (26-34); Mean Corpuscular Volume 89.2 fl (80-100); Mean Platelet Volume 12.2 fl (7.4-10.4); Monocytes Absolute Auto 0.7 K/mm3 (0.1-0.6); Monocytes Percent Auto 9.6 % (2.6-8.5); Neutrophils Absolute Auto 4.2 K/mm3 (1.3-6.7); Neutrophils Percent Auto 61.4 % (45.5-73.1); Platelet Count Result 171 k/mm3 (150-375); Red Blood Count 4.89 M/mm3 (4.6-6.20); Red Cell Distribution Width 13.1 % (11.5-14.5); White Blood Count 6.9 K/mm3 (4.5-10.0)
[2024-07-23 15:59] LABS: Creatinine Urine 469.3 mg/dL; MALB Creatinine Ratio 24.9 mg/g (0-30)
== END 2024-07-23 11:05 | disposition home or self-care (01) ==
PROVIDERS: Nurse Practitioner; PCP Family Medicine; Visit Provider Nurse Practitioner Family
DX: E11.9 Type 2 diabetes mellitus without complications (principal); Z79.4 Long term (current) use of insulin; E53.8 Deficiency of other specified B group vitamins; E55.9 Vitamin D deficiency, unspecified; E78.5 Hyperlipidemia, unspecified; F32.9 Major depressive disorder, single episode, unspecified; F41.9 Anxiety disorder, unspecified; I10 Essential (primary) hypertension; R41.89 Other symptoms and signs involving cognitive functions and awareness; Z00.00 Encounter for general adult medical examination without abnormal findings; Z12.5 Encounter for screening for malignant neoplasm of prostate; Z13.29 Encounter for screening for other suspected endocrine disorder
CPT/HCPCS: 36415; 80053; 80061; 82043; 82306; 82607; 83036; 84153; 84443; 85025; G0103

== ENCOUNTER 2024-10-05 18:32 | Emergency (ER) | payer MEDICARE, SELFPAY ==
--- NOTE | ~2024-10-05 | XR_ITS ---
EXAM: XR soft tissue neck DATE: 10/05/2024 21:48 HISTORY: Possible FB . COMPARISON: None available. FINDINGS: Bilateral hearing aids. Artifactual hook or clasp over the right shoulder. Multilevel dege nerative disc disease in the cervical spine including prominent bridging anterior osteophytes. The kylie ng apices are clear. Patent airways. Normal epiglottis. No prevertebral soft tissue swelling. IMPRESSION: Unremarkable x-ray neck soft tissue findings. No radiopaque foreign body detected. Reviewed, dictated and finalized at location K. [employer]
--- NOTE | 2024-10-05 20:11 | PC.NURSE ---
pt to triage desk asking about wait time. this rn along with yarn rewinder explained to patient waiting and triage process to patient. pt states, I will if I keep waiting I have an orange peel in the back of my throat and I can feel it. I could just pull it out myself . pt in no visible distress at this time and able to speak in clear and concise sentences. this rn explained to patient once bed became available he would be taken back. pt states, I guess I could just leave and come back . yarn rewindershaina stated if patient felt he was concerned for mortality he needed to stay and be seen by a medical provider. rn explained the risks of leaving before seeing provider. pt states, I just need a room to be seen . Again x2 rn educated patient about wait time and process. pt then returned to seat in the waiting. pt still in no visible distress at this time and able to speak in clear and concise sentences.
[2024-10-05 20:25] VITALS: BP 151/73; PULSE 69; RESP 17; TEMP 36.3; O2SAT 96
[2024-10-05 20:29] VITALS: O2SAT 96
--- NOTE | 2024-10-05 21:43 | PC.NURSE ---
Pt in xray at this time.
--- NOTE | 2024-10-05 22:09 | ED.SKABFB ---
HPI - Skin/Abscess/Foreign Bdy General Chief complaint: Skin/Abscess/Foreign Body Stated complaint: fb gi Time Seen by Provider: 10/05/24 21:15 Source: patient Mode of arrival: ambulatory Limitations: no limitations History of Present Illness HPI narrative: This is a 79-year-old male who presents to the ED for chief complaint of possible esophageal foreign body. He believes it is of possible tangerine rind. He was eating tinge drain earlier and felt like part of the right got stuck. He estimates it no bigger than a nickel in size. He states that he went to another hospital around 2:30 a.m. this morning when it happened. He reports he was given some lidocaine to swallow and this helped temporarily. He still feels something may be stuck. Denies troubles swallowing. States that he has stuck his finger down his throat he can feel the tangerine. Denies fevers, chills, drooling, trismus, nausea, vomiting. Related Data Home Medications Medication Instructions Recorded Confirmed aspirin 81 mg tablet,delayed 81 mg PO DAILY 12/18/19 12/18/23 release (Aspir-Low) multivitamin (One Daily Essential 1 tablet PO DAILY 12/18/19 12/18/23 tablet) omega-3 fatty acids 1,000 mg 1,000 mg PO DAILY 12/18/19 12/18/23 capsule (Fish Oil Concentrate) cholecalciferol (vitamin D3) 50 50 mcg PO DAILY 12/02/21 12/18/23 mcg (2,000 unit) capsule insulin NPH-regular 70-30 U-100 See Rx Instructions subcut BID 06/12/23 12/18/23 insulin 100 unit/mL subcutaneous pen (Novolin 70-30 FlexPen U-100 Insulin) sildenafil 100 mg tablet 100 mg PO DAILY PRN 06/12/23 12/18/23 Allergies Allergy/AdvReac Type Severity Reaction Status Date / Time No Known Allergies Allergy Verified 10/05/24 20:26 Review of Systems Review of Systems: All systems as dictated in [facility] Past Medical History Medical History (Updated 10/05/24 @ 22:11 by Bennett Alfaro PA-C) Anxiety Depression Dyslipidemia Essential (primary) hypertension Family history of colon cancer in mother History of colon polyps IDDM (insulin dependent diabetes mellitus) Insomnia Positive serology for syphilis Pulmonary nodule TIA (transient ischemic attack) (~05/2023) Vitamin D deficiency Surgical History Surgical History History of hernia surgery bilateral inguinal hernia repair - 2014 Family History Family History Mother Diabetes mellitus CHF (congestive heart failure) Dementia Father Dementia Social History Social History Social History: The patient is retired from the [employer]. 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 He is and lives with his . He has 1 child. He is a former smoker. He denies any alcohol marijuana or illicit drugs. Code status full code Smoking status: Never smoker Tobacco type: cigarettes Smoking end date: 11/20/1965 Alcohol intake: former Drinks per week: 0 Alcohol use details: stopped in 1972 Substance use: never Substance use type: does not use Do You Feel Safe in your Home?: Yes Lack of Transportation: No Lack of Food: Never True Current Housing: I Have Housing Concerned About Future Housing: No Difficulty Paying Gas/Electric Bills: No Difficulty Paying for Meds: No Currently Unemployed: No Education: High School Diploma/GED Difficulty w/ Childcare or Family Care: No Living arrangements: with family Additional living arrangements comments: Occupation/Education: retired Gender identity (if verbalized by the patient): Male Sexual Orientation (if Verbalized by the Patient): Straight or Heterosexual Spiritual care concerns: No Exam Narrative: GENERAL: Well-appearing, well-nourished, and in no acute distress. HEAD: Normocephalic, atraumatic. EYES: PERRLA and EOMI. ENT: Nares clear, no rhinorrhea or epistaxis. Mucous membranes moist. Oropharynx without tonsillar hypertrophy exudate or other lesions. The tolerating secretions well. Able to swallow and entire can of cola. NECK: Supple. No adenopathy or masses. CHEST: No respiratory distress. Clear to auscultation. No wheezes rales or rhonchi HEART: Regular rate and rhythm. No murmur heard. Normal peripheral pulses. ABDOMEN: Soft, nontender, nondistended, normal active bowel sounds. MSK: Normal range of motion. No edema. SKIN: Warm, dry, no rash. NEURO: Alert and oriented x4. No focal deficits. PSYCH: Normal mood and affect. Course Vital Signs Vital signs: Vital Signs Temperature 97.4 F L 10/05/24 20:25 Pulse Rate 69 10/05/24 20:25 Respiratory Rate 17 10/05/24 20:25 Blood Pressure 151/73 H 10/05/24 20:25 Pulse Oximetry 96 10/05/24 20:25 Temperature 97.4 F L 10/05/24 20:25 Pulse Rate 69 10/05/24 20:25 Respiratory Rate 17 10/05/24 20:25 Blood Pressure 151/73 H 10/05/24 20:25 Pulse Oximetry 96 10/05/24 20:29 Oxygen Delivery Room Air 10/05/24 20:29 MDM - Skin/Abscess/Foreign Bdy MDM Narrative Medical decision making narrative: This is a an 79-year-old male who presents to the ED for chief complaint of possible esophageal foreign body. Vitals are normal. Exam is benign. Patient is able tolerate secretions. Able swallow an entire can of cola without difficulty. X-ray soft tissue does not show any radiopaque foreign bodies. Suspect that patient has already swallowed the the food that he suspected was stuck. Presentation consistent with globus sensation. Pt will be discharged in stable condition. Return precautions given and supportive measures discussed. Pt is understanding and agreeable with plan for discharge and follow-up with PCP. Discharge Plan Discharge Clinical Impression: Globus sensation Patient Disposition: Home, Self-Care Condition: Stable Instructions: Antibiotic Form Additional Instructions: Your exam and imaging are reassuring. If you feel that you cannot swallow or have any new or worsening symptoms please return to the ER for further evaluation. Prescriptions: No Action omega-3 fatty acids [Fish Oil Concentrate] 1,000 mg capsule 1,000 mg PO DAILY multivitamin [One Daily Essential] Tablet 1 tablet PO DAILY aspirin [Aspir-Low] 81 mg tablet,delayed release (DR/EC) 81 mg PO DAILY cholecalciferol (vitamin D3) 50 mcg (2,000 unit) capsule 50 mcg PO DAILY Novolin 70-30 FlexPen U-100 100 unit/mL (70-30) insulin pen See Rx Instructions subcut BID Rx Instructions: per ISS subcutaneously twice a day; 121-200 30 units 201-300 35 units 301-400 40 units >400 45 units sildenafil 100 mg tablet 100 mg PO DAILY PRN sertraline 50 mg tablet 75 mg PO DAILY Qty: 135 1RF donepezil 10 mg tablet See Rx Instructions .ROUTE .COMPLEX Qty: 90 2RF Dose Instruction: TAKE 1 TABLET BY MOUTH EVERY DAY AT BEDTIME Rx Instructions: TAKE 1 TABLET BY MOUTH EVERY DAY AT BEDTIME metformin 1,000 mg tablet 1,000 mg PO BID Qty: 180 1RF rosuvastatin 10 mg tablet 10 mg PO QHS Qty: 90 1RF memantine 10 mg tablet 10 mg PO BID Qty: 180 1RF lisinopril 40 mg tablet 40 mg PO DAILY Qty: 90 1RF amlodipine 10 mg tablet 10 mg PO DAILY Qty: 90 1RF Follow-up/Referrals: Freedom Kirkpatrick MD [Primary Care Provider] - Time of Disposition: 22:11
== END 2024-10-05 22:20 | disposition home or self-care (01) ==
LOC: ANHED 22:12
PROVIDERS: Emergency Provider Physician Assistant; PCP Family Medicine
DX: R09.A2 Foreign body sensation, throat (principal); I10 Essential (primary) hypertension; E78.5 Hyperlipidemia, unspecified; E11.9 Type 2 diabetes mellitus without complications; E55.9 Vitamin D deficiency, unspecified; F32.A Depression, unspecified; F41.9 Anxiety disorder, unspecified; Z87.891 Personal history of nicotine dependence; Z86.0100 Personal history of colon polyps, unspecified; Z86.73 Personal history of transient ischemic attack (TIA), and cerebral infarction without residual deficits; Z79.4 Long term (current) use of insulin; Z79.82 Long term (current) use of aspirin; Z79.899 Other long term (current) drug therapy
CPT/HCPCS: 70360; 99283

== ENCOUNTER 2025-08-06 14:51 | Outpatient (CLI) | payer MEDICARE, SELFPAY ==
--- OUTSIDE RECORDS SUMMARY | 2007-01-25 05:39 | XMS_ITS | Continuity of Care Document ---
Author Organization [facility] Address [address] [place] [address] Phone Care Team Providers Care Rod And Tube Straightener Name Role Phone Queenie Giles Unavailable Unavailable Procedures Procedure Date Office/outpatient Visit, [facility] Advance Directives Directive Yes / No Effective Date File Name No Information Encounters Encounter Description Practice Location Reason(s) For Visit Diagnoses Date Provider Providers Copied on Encounter Office/outpat ient Visit, [facility], [address], [place], [place], [id number], [place] tel:[phone] SEC [facility] No Information Jan-0 8-200 7 Tisha Jerome. [address] [facility] , [address], [place], [address], [place]. tel:[phone] Family History Family Member Type Diagnosis Age At Onset No Information Payers Payer name Insurance type Covered libertarian ID Authoriza tion(s) No Information Social History Type Description Quantity Date Captured Comments Sex Male Smoking Status No Information Chief Complaint And Reason For Visit No Information Reason For Referral Reason For Referral No Information History Of Present Illness Encounter Date Complaint History Of Prese nt Illness No Information Functional Status Date Functional Assessmen t No Information Instructions Date Instruction Additional Infor mation No Information Assessments Type Assessment Date No Information Patient Care Teams Name Effective Dates (start - stop) Status Members No Information
--- OUTSIDE RECORDS SUMMARY | 2025-08-06 15:32 | XMS_ITS | Clinical Summary ---
Author Organization [facility] [employer] Address [address] [place] [address] Care Team Providers Care Chaser Helper Name Role Phone Unavailable Primary Care Provider Unavailabl e Source Comments [facility],non-owned Affiliates and Associated Physician Practices is amultiple site organization consisting of ambulatory clinics and hospital sitesin [place], [place], [place] and [place]. This disclosure is being madepursuant to the Care Everywhere program and may not contain all information available regarding this patient. Last updated 18.[facility] [employer] Allergies Active Allergy Reactions Criticality Noted Date Comments Aspirin Other 06/01/2010 325 mg caused ringing in ears Medications * Be aware that medications may not be up to date on this document. Alwaysverify current medications with the patient. ACTOS PO Take by mouth. Active METFORMIN HCL PO Take by mouth. Active GLYBURIDE PO Take by mouth. Active aspirin 81 MG tablet Take by mouth. Active LISINOPRIL PO Take by mouth. Active FISH OIL PO Take by mouth. Active ZOLOFT PO Take by mouth. Active diclofenac sodium (VOLTAREN) 75 MG tablet TBEC Take 1 Tab by mouth 3 times daily. 90 Tab 2 08/12/2013 Active diazepam (VALIUM) 5 MG tablet Take 1 Tab by mouth 3 times daily as needed. 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 Gender Identity Not on file Sexual Orientation Not on file Last Filed Vital Signs Vital Sign Reading Time Taken Comments Blood Pressure - - Pulse - - Temperature - - Respiratory Rate - - Oxygen Saturation - - Inhaled Oxygen Concentration - - Weight 104.3 kg (230 lb) 06/01/2010 3:57 PM CDT Height 182.9 cm (6') 06/01/2010 3:57 PM CDT Body Mass Index 31.19 06/01/2010 3:57 PM CDT Plan of Treatment Health Maintenance Due Date Last Done Comments DTAP/TDAP/TD VACCINES (1 - Tdap) 1962 PNEUMOCOCCAL VACCINE 50+ (1 of 1 - PCV) 1993 ZOSTER VACCINE (1 of 2) 1993 Respiratory Syncytial Virus (RSV) Vaccine Pt: or over 60 yrs (1 - 1-dose 75+ series) 2018 DEPRESSION SCREENING 11/20/2024 COVID-19 VACCINE ( - 2023-2 5 season) 2025 INFLUENZA VACCINE (#1) 2025 HEPATITIS B VACCINE Aged Out No longe r eligible based on patient's age to complete this topic HIB VACCINE Aged Out No longer eligi ble based on patient's age to complete this topic HPV VACCINE Aged Out No longer eligi ble based on patient's age to complete this topic MENINGOCOCCAL (Group B) VACC INE SHARED DECISION-MAKING Aged Out No longer eligibl e based on patient's age to complete this topic MENINGOCOCCAL GROUPS A/C/Y/W VACCINE Aged Out No longer eligible b ased on patient's age to complete this topic Insurance MEDICARE [employer]
--- OUTSIDE RECORDS SUMMARY | 2025-08-06 15:32 | XMS_ITS | Clinical Summary ---
Author Organization [facility] [address] [place] [id number] Care Team Providers Care Rating Clerk Name Role Phone Cherise Kirkpatrick MD Primary Care Provider Magdi Hernandez MD Unavailable [phone] Allergies Active Allergy Reactions Criticality Noted Date Comments Aspirin Other (See comments) Low Medications amLODIPine (NORVASC) 10 mg tablet Take 1 tablet (10 mg total) by mouth daily 8 Active omega 3-ctw-alu-fish oil (FISH OIL) 60-90-500 mg capsule Take by mouth. Activ e gemfibrozil (LOPID) 600 mg tablet Take 1 tablet (600 mg total) by mouth 2 (two) times a day 8 Active metFORMIN (GLUCOPHAGE) 1,000 mg tablet Take 1 tablet (1,000 mg total) by mouth 2 (two) times a day with meals 8 Active sertraline (ZOLOFT) 50 mg tablet 8 Active aspirin 81 mg tablet Take 1 tablet (81 mg total) by mouth daily Active insulin NPH hum/reg insulin hm (NOVOLIN 70/30 U-100 INSULIN SUBQ) Inject under the skin Sliding scale BID Active lisinopriL (PRINIVIL,ZESTRI L) 40 mg tablet Take 1 tablet (40 mg total) by mouth daily 1 Active MULTIVITAMIN ORAL Take by mouth Active donepeziL (ARICEPT) 10 mg tabletIndication s:Cognitive decline Take 1 tablet by mouth once daily 90 tablet 2 Active sildenafiL (VIAGRA) 100 mg tabletIndication s:Other male erectile dysfunction Take 1 tablet (100 mg total) by mouth as needed for erectile dysfunction 10 tablet 11 3 Active blood-glucose meter misc One Touch Ultra 2 Meter Use to check blood sugar three time per day 1 each 3 Active memantine (NAMENDA) 10 mg tablet Take 1 tablet (10 mg total) by mouth 2 (two) times a day 3 Active insulin syringe-needle U-100 0.5 mL 31 gauge x 16 syringeIndicatio ns:Type 2 diabetes mellitus with hyperglycemia, with long-term current use of insulin (HCC) Relion insulin syringe USE 1 SYRINGE THREE TIMES KEYONA 300 each 3 4 Active rosuvastatin (CRESTOR) 10 mg tablet Take 1 tablet (10 mg total) by mouth nightly at bedtime 4 Active cholecalciferol (VITAMIN D-3) 2000 unit capsule Take 1 capsule (2,000 Units total) by mouth daily Active blood glucose diagnostic (OneTouch Ultra Test) stripIndications :Type 2 diabetes mellitus with hyperglycemia, with long-term current use of insulin (HCC) USE STRIP TO CHECK GLUCOSE THREE TIMES DAILY 300 each 1 4 Active Active Problems Problem Noted Date Diagnosed Date Cognitive decline 06/11/2021 Assessment & Plan (08/25/2021 10:49 AM CDT): Patient has undergone MRI and laboratory assessment for medically reversible causes of cognitive decline which are unrevealing. Because of the presence of a positive RPR in the serum he did have a spinal fluid examination which was unrevealing with no evidence of neurosyphilis. His clinical story of progressive cognitive decline and current exam would be most consistent with mild cognitive impairment. I did discuss with he and his the possibility of observation versus consideration of treatment with donepezil. After discussing the potential benefits of donepezil an adverse effect, both wish to pursue a trial of donepezil for him. He will be placed on donepezil 5 mg daily for a month, 10 mg daily thereafter. He will follow-up in neurology clinic in 6 months for reassessment on therapy. Assessment & Plan (06/11/2021 11:06 AM CDT): Patient and report mild progressive cognitive impairment episodically. His examination shows mild cognitive deficits clinically suspicious for mild cognitive impairment. I will obtain an MRI brain in addition to laboratory assessment including B12, treponemal antibody survey, TSH and T4. I will see him back in the office thereafter. Mixed diabetic hyperlipidemi a associated with type 2 diabetes mellitus 08/28/2018 Assessment & Plan (03/05/2024 10:30 AM CDT): Chronic problem. Currently taking Gemfibrozil 600mg bid. Last lipid panel: 09/26/23 KGV=029, TL=383. No changes at this time. Reviewed diet/activity recommendations. Assessment & Plan (09/05/2023 10:39 AM CDT): Chronic problem. Currently taking Gemfibrozil 600mg bid. Last lipid panel: 07/13/22 KXQ=744, TG=90. No changes at this time. Assessment & Plan (05/02/2023 10:43 AM CDT): Chronic problem. Currently taking Gemfibrozil 600mg bid. Last lipid panel: 07/13/22 UVD=822, TG=90. No changes at this time. Assessment & Plan (12/27/2022 5:20 PM SPINNER FIXER): Chronic, On gemfibrozil Will try to get results from labs done with his primary care physician Assessment & Plan (05/25/2021 2:36 PM CDT): Goal of treatment , LDL cholesterol less than 100 ( less than 70 in patients with history of heart attacks and / or strokes ) NonHDL cholesterol ( total cholesterol minus HDL cholesterol ) goal less than 130 ( less than 100 in patients with history of heart attacks and / or strokes ) Low cholesterol, low fat diet was discussed and advised. Daily exercise Assessment & Plan (01/19/2021 2:51 PM SPINNER FIXER): Goal of treatment , LDL cholesterol less than 100 ( less than 70 in patients with history of heart attacks and / or strokes ) NonHDL cholesterol ( total cholesterol minus HDL cholesterol ) goal less than 130 ( less than 100 in patients with history of heart attacks and / or strokes ) Low cholesterol, low fat diet was discussed and advised. Daily exercise Assessment & Plan (09/08/2020 4:15 PM CDT): Goal of treatment , LDL cholesterol less than 100 ( less than 70 in patients with history of heart attacks and / or strokes ) NonHDL cholesterol ( total cholesterol minus HDL cholesterol ) goal less than 130 ( less than 100 in patients with history of heart attacks and / or strokes ) Low cholesterol, low fat diet was discussed and advised. Daily exercise On Lopid Assessment & Plan (04/28/2020 1:51 PM CDT): Goal of treatment , LDL cholesterol less than 100 ( less than 70 in patients with history of heart attacks and / or strokes ) NonHDL cholesterol ( total cholesterol minus HDL cholesterol ) goal less than 130 ( less than 100 in patients with history of heart attacks and / or strokes ) Low cholesterol, low fat diet was discussed and advised. Daily exercise Assessment & Plan (12/24/2019 9:52 AM SPINNER FIXER): Continue Gemfibrozil Assessment & Plan (05/14/2019 12:37 PM CDT): Goal of treatment , LDL cholesterol less than 100 ( less than 70 in patients with history of heart attacks and / or strokes ) NonHDL cholesterol ( total cholesterol minus HDL cholesterol ) goal less than 130 ( less than 100 in patients with history of heart attacks and / or strokes ) Low cholesterol, low fat diet was discussed and advised. Daily exercise On statin therapy Assessment & Plan (08/28/2018 3:41 PM CDT): Goal of treatment , LDL cholesterol less than 100 ( less than 70 in patients with history of heart attacks and / or strokes ) NonHDL cholesterol ( total cholesterol minus HDL cholesterol ) goal less than 130 ( less than 100 in patients with history of heart attacks and / or strokes ) Low cholesterol, low fat diet was discussed and advised. Daily exercise On Lopid Other male erectile dysfunction 03/29/2018 Assessment & Plan (05/02/2023 11:03 AM CDT): Printed script for viagra given. Reviewed med SE & scheduling. If erection lasts >4hours; to go to ER. Reviewed red flags. Assessment & Plan (03/29/2018 9:44 AM CDT): Rx for Viagra sent. Type 2 diabetes mellitus wit h hyperglycemia, with long-term current use of insulin 2014 Overview (02/24/2017): Diabetes Assessment & Plan (03/05/2024 11:11 AM CDT): Chronic problem. Uncontrolled but A1c improved from 8.8% 08/2023 to now 8.5%. Will increase sliding scale by 5 units due to elevated blood sugars persistently. Current medications: Metformin 1000mg twice daily with meals Novolin 70/30 before breakfast & dinner: For sugar under 120, if you are going to eat, take 15 units. For sugars 121- 200, take 35 units For sugars 201-300, take 40 units For sugars 301-400, take 50 units For sugar over 401, take 55 units UTD on DM eye exam (07/2023) UTD on labs Discussed diet/activity at length: watch diet & snack cakes! Increase activity. Increase water intake. Strive for regular exercise (30min most days) and diet (get at least 4-5 servings of fruit and veggies daily, avoid processed foods, increase lean protein intake and decrease carb portions as well as fruit juices, regular soda & desserts). Watch carbs and simple sugars. Check the blood sugar twice daily. Check the feet daily for skin breakdown and infection. Assessment & Plan (09/05/2023 10:41 AM CDT): Chronic problem. Uncontrolled but A1c improved from 9.3% 04/2023 to now 8.8%. Current medications: Metformin 1000mg twice daily with meals Novolin 70/30 before breakfast & dinner: For sugar under 120, if you are going to eat, take 15 units. For sugars 121- 200, take 30 units For sugars 201-300, take 35 units For sugars 301-400, take 40 units For sugar over 401, take 45 unit UTD on DM eye exam (07/2023) Will update MA/Cr today. Verified that he uses [facility]. Aware to check results/results letter in [place]. Will contact by phone if needed. Discussed diet/activity at length: watch diet & snack cakes! Increase activity. Increase water intake. Strive for regular exercise (30min most days) and diet (get at least 4-5 servings of fruit and veggies daily, avoid processed foods, increase lean protein intake and decrease carb portions as well as fruit juices, regular soda & desserts). Watch carbs and simple sugars. Check the blood sugar BID. Check the feet daily for skin breakdown and infection. Assessment & Plan (05/02/2023 11:01 AM CDT): Chronic problem. Uncontrolled but stable. A1c was 9.5% 12/27/22 and now 9.3%. Discussed diet/activity at length: watch diet & snack cakes! Increase activity. Increase water intake. Strive for regular exercise (30min most days) and diet (get at least 4-5 servings of fruit and veggies daily, avoid processed foods, increase lean protein intake and decrease carb portions as well as fruit juices, regular soda & desserts). Watch carbs and simple sugars. Check the blood sugar BID. Check the feet daily for skin breakdown and infection. Will update MA/Cr today. Reports next DM eye exam 06/15/23 at [facility]. Will send letter to get copy of report. Believes he had DM eye exam last year at [facility]. Letter sent to get copy. Current medications: Metformin 1000mg twice daily with meals Novolin 70/30 before breakfast & dinner: For sugar under 120, if you are going to eat, take 15 units. For sugars 121- 200, take 30 units For sugars 201-300, take 35 units For sugars 301-400, take 40 units For sugar over 401, take 45 units Assessment & Plan (12/27/2022 5:18 PM SPINNER FIXER): Chronic, uncontrolled Importance of trying to work better on diet, cutting on carbs and sweets was discussed Insulin regimen adjusted as follows: Stay on Novolin 70/30 before breakfast and dinner For sugar under 120, if you are going to eat, take 15 units. For sugars 121- 200, take 30 units For sugars 201-300 take 35 units For sugars 301, 400 take 40 units For sugar over 401, take 45 units Stay on Metformin Assessment & Plan (10/12/2021 2:04 PM SPINNER FIXER): Continues to be very poorly controlled I called and talked to his , Mara whom is a retired nurse. I advised on following the instructions given as follows: Check your sugars before breakfast and dinner Take Novolin 70/30, 20 units before breakfast and dinner For sugars over 200, take 25 units For sugars over 300, take 35 units I emphasized the need to keep a log and bring it to the next office visit. Assessment & Plan (05/25/2021 2:36 PM CDT): Hba1c was Lab Results Component Value Date HGBA1C 9.5 (A) 05/25/2021 today, indicating poor DM control Goal blood sugars in the 120-150 range , with Hb1c under 7.0 % was explained 1800 calorie, consistent carb diet recommended. No more than 30-45 grams of carbs per meal recommended, as well as avoiding high concentrated sweet drinks . 25-45 min daily exercise, combining both aerobic and resistance exercise recommended. The need to monitor blood glucose before meals and bedtime was discussed. Prevention and treatment of hyypoglcyemia discussed. Check your sugars before meals Take Novolin 70/30, 20 units before breakfast and dinner For sugars over 200, take 25 units For sugars over 300, take 35 units Bring your log sheets or glucose meter. Assessment & Plan (01/19/2021 2:51 PM SPINNER FIXER): Hba1c was Lab Results Component Value Date HGBA1C 9.5 01/19/2021 today, indicating poor DM control Goal blood sugars in the 120-150 range , with Hb1c under 7.0 % was explained 1800 calorie, consistent carb diet recommended. No more than 30-45 grams of carbs per meal recommended, as well as avoiding high concentrated sweet drinks . 25-45 min daily exercise, combining both aerobic and resistance exercise recommended. The need to monitor blood glucose before meals and bedtime was discussed. Prevention and treatment of hyypoglcyemia discussed. Take Humulin 70/30, 15 units before breakfast and dinner For sugars over 180, take 20 units For sugars over 250, take 30 units Continue Metformin and Januvia. Assessment & Plan (09/08/2020 4:14 PM CDT): Hba1c was Lab Results Component Value Date HGBA1C 9.5 09/08/2020 today, indicating poor DM control Goal blood sugars in the 120-150 range , with Hb1c under 7.0 % was explained 1800 calorie, consistent carb diet recommended. No more than 30-45 grams of carbs per meal recommended, as well as avoiding high concentrated sweet drinks . 25-45 min daily exercise, combining both aerobic and resistance exercise recommended. The need to monitor blood glucose before meals and bedtime was discussed. Prevention and treatment of hyypoglcyemia discussed. Need to do blood glucose monitoring was discussed at length and to adjust insulin according Sliding scale provided again Assessment & Plan (04/28/2020 1:49 PM CDT): Hba1c was Lab Results Component Value Date HGBA1C 9.2 04/28/2020 today, indicating poor DM control 1800 calorie, consistent carb diet recommended. No more than 30-45 grams of carbs per meal recommended, as well as avoiding high concentrated sweet drinks . 25-45 min daily exercise, combining both aerobic and resistance exercise recommended. The need to monitor blood glucose before meals and bedtime was discussed. Prevention and treatment of hyypoglcyemia discussed. Insulin dose: Novolin Mix 70/30 : 30 unit before breakfast and dinner For sugars over 200, take 35 units For sugars over 300, take 40 units 30 units at bedtime Assessment & Plan (12/24/2019 9:51 AM SPINNER FIXER): Poorly controlled, mostly due to dietary indiscretion Continue Novolin 70/30; take 15 units for BG under 120 ( instead of not taking any ) Continue oral agents Be more aware of diet . Will get report of eye exam Assessment & Plan (05/14/2019 12:37 PM CDT): Hba1c was Lab Results Component Value Date HGBA1C 9.6 % 05/14/2019 today, indicating Poor, but improving DM control 1800 calorie, consistent carb diet recommended 25-45 min daily exercise, combining both aerobic and resistance exercise recommended. The need to monitor blood glucose before meals and bedtime was discussed. Dose of basal and prandial insulin adjusted as follows: continue current regimen Prevention and treatment of hyypoglcyemia discussed. Assessment & Plan (01/08/2019 10:46 AM SPINNER FIXER): Your Hba1c today was: Lab Results Component Value Date HGBA1C 11.1 01/08/2019 meaning a 3 month average sugar of : Your goal hba1c is under 7.0 to prevent longterm diabetes complications ( eye , kidney and nerve damage ) . Your goal sugars are in the 90-130 range Daily aerobic ( walking, riding a bike, swimming ) and resistance exercises ( light weight lifting, resistance band stretching ) for at least 30 minutes is recommended If you can not walk, chair exercises for 10-15 min a day would help tremendously. As little as 15-20 minutes exercise , in one or two sessions a day, is still very helpful to improve your diabetes control . Eat small portion meals, trying not to consume no more than 1800 calories a day . Try to eat not more than than 3 servings of carbs ( starches ) wiith your meals. Avoid soft drinks, including regular sodas , fruit juices and sweetened tea. Drink water instead. Eat plenty of green and leafy vegetables, including salads. Take your medications regularly. Setting phone alarms can help . Keep your medication on the kitchen dinner table, by the bedside table or by the sink where they are visible to you. The insulin that you are currently using does not need to be refrigerated. Keep it where you can see it . Monitor your sugar levels with finger sticks regularly and keep a log sheet or book. Bring your sugar meter and /or a log book or log sheet to every office visit. Try to cut on sweets and starches. Take Novolin 70/30, 20 units before each meal For sugars over 200, take 25 units For sugars over 300, take 35 units For sugars over 400,take 45 units Assessment & Plan (08/28/2018 3:41 PM CDT): Hba1c was Lab Results Component Value Date HGBA1C 11.2 08/28/2018 today, indicating poor DM control 1800 calorie, consistent carb diet recommended 30 min daily exercise, combining both aerobic and resistance exercise is strongly recommended and needed as part of diabetes management plan. The need to monitor blood glucose before meals and bedtime was discussed. Take prandial insulin before meals based on carb intake and blood glucose readings. Prevention and treatment of hyypoglcyemia discussed. Assessment & Plan (05/20/2018 2:40 PM CDT): BG by report still a bit above goal. Likely pc excursions are still higher. Will adjust higher end of ssi. Education provided on timing and spacing of meals and snacks. No more than 60 grams carb at meal. Do not skip lunch d/t action of mixed insulin. Assessment & Plan (03/29/2018 9:46 AM CDT): Your last Hba1c was: 11.2 meaning a 3 month average sugar of : 287 Your goal hba1c is under 8.0 to prevent terminal clerk diabetes complications ( eye , kidney and nerve damage ) . Your goal sugars are in the 120-160 range Daily aerobic ( walking, riding a bike, swimming ) and resistance exercises ( light weight lifting, resistance band stretching ) for at least 30 minutes is recommended If you can not walk, chair exercises is very acceptable. As little as 15-20 minutes exercise , in one or two sessions a day, is still very helpful and will help to improve your diabetes control . Eat small portion meals, no more than 1800 calories Diet Try to eat not more than than 2-3 servings of carbs ( starches ) wiith your meals. Avoid soft drinks, including regular sodas , fruit juices and sweetened tea. Drink water instead. Eat plenty of green and leafy vegetables, including salads. Take your medications regularly,including your insulin injections. Monitor your sugar levels with finger sticks regularly and keep a log sheet or book. Bring your sugar meter and /or a log book or log sheet to every office visit. Check your sugars 3 times a day, before meals Stop Glimepiride Take Novolog 70/30, 10 units before breakfast and 14 units before dinner For sugars over 150, take 12 and 16 units For sugars over 200, take 14 and 18 units For sugars over 250, take 16 and 20 units For sugars over 300, take 18 and 22 units Start Jardiance, 10 mg daily in the mornings. Continue with metformin , 1000 mg twice a day . Hypertension associated with diabetes 2014 Overview (02/24/2017): Hypertension Assessment & Plan (03/05/2024 10:30 AM CDT): Chronic problem. controlled on current Lisinopril 40mg, amlodipine 10mg daily. No changes at this time. Assessment & Plan (09/05/2023 10:39 AM CDT): Chronic problem. controlled on current Lisinopril 40mg, amlodipine 10mg daily. No changes at this time. Assessment & Plan (05/02/2023 10:59 AM CDT): Chronic problem. controlled on current Lisinopril 40mg, amlodipine 10mg daily. No changes at this time. Assessment & Plan (12/27/2022 5:19 PM SPINNER FIXER): Chronic, well-controlled Continue current medications including lisinopril Norvasc Assessment & Plan (05/25/2021 2:36 PM CDT): Goal blood pressure is less than 140/85 Low salt diet was discussed andd recommended The importance of daily aerobic exercise was also emphasized. Continue current meds, including LILIBETH-I or ARB, e.g. Lisinopril Assessment & Plan (01/19/2021 2:51 PM SPINNER FIXER): Goal blood pressure is less than 140/85 Low salt diet was discussed andd recommended The importance of daily aerobic exercise was also emphasized. Continue current meds, including LILIBETH-I or ARB, e.g. Check microalbumin Assessment & Plan (09/08/2020 4:15 PM CDT): Goal blood pressure is less than 140/85 Low salt diet was discussed andd recommended The importance of daily aerobic exercise was also emphasized. Continue current meds, including LILIBETH-I or ARB, e.g. Lisinopril Assessment & Plan (04/28/2020 1:51 PM CDT): Goal blood pressure is less than 140/85 Low salt diet recommended Daily aerobic exercise Continue current meds, including LILIBETH-I or ARB with Lisinopril Assessment & Plan (12/24/2019 9:52 AM SPINNER FIXER): Goal blood pressure is less than 140/85 Low salt diet recommended Daily aerobic exercise continue current Check, microalbumin Assessment & Plan (05/14/2019 12:37 PM CDT): Goal blood pressure is less than 140/85 Low salt diet recommended Daily aerobic exercise Continue current meds, including LILIBETH-I or ARB Assessment & Plan (01/08/2019 11:30 AM SPINNER FIXER): Goal blood pressure is less than 140/85 Low salt diet recommended Daily aerobic exercise Continue current meds, including LILIBETH-I or ARB Assessment & Plan (08/28/2018 3:33 PM CDT): Goal blood pressure is less than 140/85 Low salt diet recommended Daily aerobic exercise Continue current meds, including LILIBETH-I or ARB Assessment & Plan (05/20/2018 2:41 PM CDT): Controlled on current medications. Resolved Problems Problem Noted Date Diagnosed Date Resolved Date Hyperlipidemia 2014 05/02/2023 Overview (02/24/2017): Hyperlipidemia Surgical History Surgery Date Site/Laterality Comments OTHER SURGICAL HISTORY bilat inguinal hernia repairs CATARACT EXTRACTION VASECTOMY FL FLUORO GUIDED LUMBAR PUNCTURE 08/13/2021 Right Medical History Medical History Date Comments Type 2 diabetes mellitus Hypertension Hyperlipidemia Depression Family History Medical History Relation Name Comments No Known Problems Brother 1 HIV Brother 2 Alzheimer's disease Father Stroke Father COPD Mother Cancer Mother Hypertension Mother Diabetes Paternal Grandmother Relation Name Status Comments Brother 1 Alive Brother 2 Father Mother Paternal Grandmother Social History Tobacco Use Types Packs/Day Years Used Date Smoking Tobacco: Former Smokeless Tobacco: Never Alcohol Use Standard Drinks/Week Comments No 0 (1 standard drink = 0.6 oz pur e alcohol) AUDIT-C Answer Date Recorded Q1: How often do you have a drink containing alc ohol? Never 08/13/2021 Average Number of Drinks Not on file 021 Frequency of Binge Drinking Not on file 07/22 PHQ-2 Answer Date Recorded PHQ-2 Total Score (If total score is 3 or more points, staff should administer the PHQ-9) 0 01/19/2021 Sex and Gender Information Value Date Recorded Sex Assigned at Not on file Legal Sex Male 7:23 PM SPINNER FIXER Gender Identity Male 09/10/2019 7:33 AM CDT Sexual Orientation Straight 09/10/2019 7: 33 AM CDT Obstetrics History Last Filed Vital Signs Vital Sign Reading Time Taken Comments Blood Pressure 128/72 03/05/2024 10:37 AM CDT Pulse 79 03/05/2024 10:37 AM CDT Temperature 36.5 C (97.7 F) 08/25/2021 10:00 AM CDT Respiratory Rate 18 03/05/2024 10:37 AM CDT Oxygen Saturation 98% 08/13/2021 3:00 PM CDT Inhaled Oxygen Concentration - - Weight 98.4 kg (217 lb) 03/05/2024 10:37 AM CDT Height 182.9 cm (6' 0.01) 03/05/2024 10:37 AM C DT Body Mass Index 29.42 03/05/2024 10:37 AM CDT Plan of Treatment Health Maintenance Due Date Last Done Comments Fall Risk Assessment 1945 Hepatitis B Screening 1961 Well Visit 65+ 2008 Zoster Vaccine (2 of 3) 02/10/2015 12/16/2014 Depression Screening 01/19/2022 01/19/2021, 09/08/2020, 12/24/2019, Additional history exists Dilated Eye Exam 07/31/2024 07/31/2023, , 02/07/2018 Albumin Creatinine Ratio, Urine 09/26/2024 Hemoglobin A1C 01/20/2025 07/23/2024, 0404/2024, 09/05/2023, Additional history exists Foot Exam 03/05/2025 03/05/2024, 020 05/2023, 09/08/2020, Additional history exists DTaP/Tdap/Td Vaccine (2 - Td or Tdap) 04/24/2025 04/24/2015 Covid-19 Vaccine (4 - 2024-2 6 season) 2025 09/13/2021, 02/10/2021, 01/19/2021 Influenza Vaccine (#1) 2025 , 08/07/2020, 08/07/2019, Additional history exists Lipid Panel 07/23/2025 07/23/2024, 110 05/2023, 07/13/2022, Additional history exists eGFR 07/23/2025 07/23/2024, 110 05/2023, 07/13/2022 Pneumococcal vaccine 65+ Completed 019, 02/28/2017, 02/19/2008 Medical Devices Implanted Type Area Tonger Device Identifier Shelf Expiration Date Model / Serial / Lot Eye Bilateral: Eye Procedures Procedure Name Priority Date/Time Associated Diagnosis Comments COMPREHENSIVE METABOLIC PANEL Routine 07/23/2024 11:25 AM CDT HEMOGLOBIN A1C Routine 07/23/2024 11:25 AM CDT LIPID PANEL Routine 07/23/2024 11:25 AM CDT ALBUMIN CREATININE RATIO, URINE Routine 09/26/2023 3:10 PM [facility]IN[facility] Type 2 diabetes mellitus with hyperglycemia, with long-term current use of insulin (HCC) HM DIABETES EYE EXAM Routine 07/31/2023 from Last 3 Months or Most Recently Relevant to Health Maintenance Results * (ABNORMAL) Hemoglobin A1c (07/23/2024 11:25 AM CDT) SCRIBED Hemoglobin A1c 8.5 <5.7 - NA % EXTERNAL LAB Blood 07/23/2024 11:2 5 AM CDT us Historical Provider MD LAB BLOOD ORDERABLES Edit ed Result - Final EXTERNAL LAB * Lipid panel (07/23/2024 11:25 AM CDT) SCRIBED Cholesterol, Total 131 0 - 200 EXTERNAL LAB SCRIBED HDL 41 >35 - NA EXTERNAL LAB SCRIBED LDL 66 <130 - NA EXTERNAL LAB SCRIBED Triglycerides 110 <150 - NA EXTERNAL LAB Blood 07/23/2024 11:2 5 AM CDT Historical Provider MD LAB BLOOD ORDERABLES Edit ed Result - Final EXTERNAL LAB * (ABNORMAL) Comprehensive metabolic panel (07/23/2024 11:25 AM CDT) SCRIBED Sodium 140 134 - 145 mmol/L EXTERNAL LAB SCRIBED Potassium 4.1 3.4 - 5.0 mmol/L EXTERNAL LAB SCRIBED Chloride 98 98 - 107 mmol/L EXTERNAL LAB SCRIBED Carbon Dioxide 31(A) 22 - 30 mmol/L EXTERNAL LAB SCRIBED Anion Gap 11 4 - 12 mmol/L EXTERNAL LAB SCRIBED Urea Nitrogen (BUN) 15 9 - 20 mg/dl EXTERNAL LAB SCRIBED Creatinine 0.90 0.7 - 1.3 mg/dl EXTERNAL LAB SCRIBED Glucose 222(A) 65 - 110 mg/dl EXTERNAL LAB SCRIBED Calcium 9.4 8.4 - 10.2 mg/dl EXTERNAL LAB SCRIBED Bilirubin 0.7 0.2 - 1.3 mg/dl EXTERNAL LAB SCRIBED Plasma Protein 8.0 6.3 - 8.2 g/dl EXTERNAL LAB SCRIBED Albumin 4.4 3.5 - 5.1 g/dl EXTERNAL LAB SCRIBED Alkaline Phosphatase 64 38 - 126 Units/L EXTERNAL LAB SCRIBED Alanine Transaminase (ALT) 21 6 - 50 Units/L EXTERNAL LAB SCRIBED Aspartate Transaminase (AST) 44 17 - 59 Units/L EXTERNAL LAB SCRIBED eGFR >60 >=60 - NA EXTERNAL LAB Blood 07/23/2024 11:2 5 AM CDT Historical Provider MD LAB BLOOD ORDERABLES Edit ed Result - Final EXTERNAL LAB * Albumin Creatinine Ratio, Urine (09/26/2023 3:10 PM SPIN[facility] FIXER) Creatinine, ur 97 20 - 320 mg/dL [facility] Microalbumin, ur 0.9 See Note: mg/dL [facility] Comment: Reference Range: Reference Range Not established Microalbumin/creat ratio 9 <30 mcg/mg creat [facility] Comment: The ADA defines abnormalities in albumin excretion as follows: Albuminuria Category Result (mcg/mg creatinine) Normal to Mildly increased <30 Moderately increased 30-299 Severely increased > OR = 300 The ADA recommends that at least two of three specimens collected within a 3-6 month period be abnormal before considering a patient to be within a diagnostic category. Urine 09/26/2023 3:10 PM [facility] 09/26/2023 3:11 PM SPINNER FIXER Narrative [facility] - 09/27/2023 4:04 PM SPINNER FIXER FASTING:NO FASTING: NO Aundrea Lizarraga NP LAB URINE ORDERABLES Consuelo l Result Performing Organization Address City/[facility]/ZIP Co de Phone Number [facility] [address] [place] [address] * DIABETES EYE EXAM (07/31/2023) 07/31/2023 Historical Provider HEALTH MAINTENANCE Edited Result - Final from Last 3 Months or Most Recently Relevant to Health Maintenance Insurance [employer] MEDICARE [facility] AET[employer] MEDICARE GOLD Care Teams Rating Clerk Relationship Specialty Start Date End Date Cherise Kirkpatrick MD PCP - General Family Practice 12/23/19 Magdi Hernandez MD [address] [place] [address] Referring Physician Ophthalmology 01/21/21
[2025-08-06 18:24] LABS: Hematocrit 43.4 % (42.0-52.0); Hemoglobin 14.6 g/dL (14.0-18.0); Immature Granulocyte Percent A 0.1 % (0-0.5); Lymphocytes Absolute Auto 1.85 K/mm3 (0.9-3.2); Mean Corpuscular HGB Conc 33.6 g/dl (32-36); Mean Corpuscular Hemoglobin 29.9 pg (26-34); Mean Corpuscular Volume 88.8 fl (80-100); Nucleated Red Blood Cells Absolute Auto 0.000 K/mm3 (0.0-0.012); Nucleated Red Blood Cells Perc 0.0 % (0.0-0.2); Platelet Count Result 184 k/mm3 (150-375); Red Blood Count 4.89 M/mm3 (4.6-6.20); White Blood Count 7.5 K/mm3 (4.5-10.0)
[2025-08-06 18:42] LABS: Alanine Aminotransferase 27 U/L (6-50); Albumin Level 4.3 g/dL (3.5-5.1); Alkaline Phosphatase 73 U/L (38-126); Anion Gap 8 mmol/L (4-12); Aspartate Amino Transferase 48 U/L (17-59); Bilirubin,Total 0.9 mg/dL (0.2-1.3); Blood Urea Nitrogen 18 mg/dL (9-20); Calcium 9.0 mg/dL (8.4-10.2); Carbon Dioxide 30 mmol/L (22-30); Chloride 99 mmol/L (98-107); Cholesterol 216 mg/dL (0-200); Estimated Glomerular Filt Rate > 60; Glucose 346 mg/dL (65-110); HDL Direct 36 mg/dL; Potassium 4.2 mmol/L (3.4-5.0); Sodium 137 mmol/L (137-145); Total Protein 7.9 g/dL (6.3-8.2); Triglycerides 232 mg/dL (<150)
[2025-08-06 18:54] LABS: MALB Creatinine Ratio 27.3 mg/g (0-30)
[2025-08-06 19:01] LABS: Hemoglobin A1C 7.7 % (<5.7)
[2025-08-06 19:03] LABS: Thyroid Stimulating Hormone Reflex 5.840 uIU/mL (0.465-4.68)
[2025-08-06 19:31] LABS: Free T4 Free Thyroxine Reflex 1.21 ng/dL (0.78-2.19)
[2025-08-06 19:36] LABS: Vitamin B12 426.0 pg/mL (239-931)
[2025-08-06 20:12] LABS: Total Triiodothyronine (T3) 2.09 NG/ML (0.82-1.58)
== END 2025-08-06 14:52 | disposition home or self-care (01) ==
LOC: ANHGOSHLAB 14:52
PROVIDERS: PCP Nurse Practitioner Family; Visit Provider Nurse Practitioner Family
DX: G30.9 Alzheimer's disease, unspecified (principal); F02.818 Dementia in other diseases classified elsewhere, unspecified severity, with other behavioral disturbance; I10 Essential (primary) hypertension; E78.5 Hyperlipidemia, unspecified; E55.9 Vitamin D deficiency, unspecified; E11.9 Type 2 diabetes mellitus without complications
CPT/HCPCS: 36415; 80053; 80061; 82043; 82306; 82607; 83036; 84439; 84443; 84480; 85025